=== PATIENT | female | born 1975 | race Caucasian/White ===

== ENCOUNTER 2019-08-02 18:47 | Emergency (ER) | payer OTHER ==
[2019-08-02 19:14] VITALS: BP 141/50; PULSE 76; TEMP 97.9; BMI 36.0
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
[2019-08-02] MEDS ORDERED: METHOCARBAMOL 500 MG TABLET PO ONE (21:00)
[2019-08-02] MEDS ORDERED: NAPROXEN 500 MG TABLET PO ONE (21:00)
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
[2019-08-02] MEDS ORDERED: METHOCARBAMOL 500 MG TABLET ONE (21:13)
[2019-08-02] MEDS ORDERED: NAPROXEN 500 MG TABLET ONE (21:13)
== END 2019-08-02 21:24 | disposition home or self-care (01) ==
LOC: JERFT 18:47
DX: M62.830 Muscle spasm of back (principal); M54.5 Low back pain; V49.9XXA Car occupant (driver) (passenger) injured in unspecified traffic accident, initial encounter; Y92.488 Other paved roadways as the place of occurrence of the external cause; Y93.89 Activity, other specified; Y99.8 Other external cause status
CPT/HCPCS: 99281-25